=== PATIENT | male | born 1975 | race African-American/Black ===

== ENCOUNTER 2023-02-20 20:12 | Emergency (ER) | payer OTHER ==
[~2023-02-20] VITALS: Ht 170.2 cm; Wt 88.9 kg
[2023-02-20] MEDS ORDERED: HYDROCODONE/APAP 5-325MG TABLET PO ONE (20:30)
[2023-02-20] MEDS ORDERED: HYDROCODONE/APAP 5-325MG TABLET ONE (20:33)
[2023-02-20] MEDS ORDERED: CYCLOBENZAPRINE HCL 10 MG TABLET PO ONE (21:15)
[2023-02-20] MEDS ORDERED: CYCL10TA9 PO (21:26)
[2023-02-20] MEDS ORDERED: CYCLOBENZAPRINE HCL 10 MG TABLET ONE (21:48)
[2023-02-20 22:31] VITALS: BP 129/76
== END 2023-02-20 22:31 | disposition home or self-care (01) ==
LOC: ER 20:14
DX: S82.892A Other fracture of left lower leg, initial encounter for closed fracture (principal); I50.9 Heart failure, unspecified; V43.52XA Car driver injured in collision with other type car in traffic accident, initial encounter; Y93.89 Activity, other specified; Y92.410 Unspecified street and highway as the place of occurrence of the external cause; Y99.8 Other external cause status
CPT/HCPCS: 73610; A4663